=== PATIENT | female | born 1950 | race Asian ===

== ENCOUNTER 2019-12-14 12:18 | Emergency (ER) | payer OTHER, MEDICARE ==
[~2019-12-14] VITALS: Ht 157.5 cm; Wt 72.0 kg
[2019-12-14] MEDS ORDERED: ONDANSETRON HCL 4 MG/2 ML VIAL IVP ONE ×2 (12:45→15:15)
[2019-12-14] MEDS ORDERED: SODIUM CHLORIDE 0.9% 1,000 ML IV ONE ×2 (12:45→13:00)
[2019-12-14] MEDS ORDERED: DEXAMETHASONE SOD PHOS 4 MG/ML 5 ML VIAL IVP ONE (13:00)
[2019-12-14] MEDS ORDERED: METOCLOPRAMIDE HCL 5 MG/ML 2 ML VIAL IVP ONE (13:00)
[2019-12-14] MEDS ORDERED: DiphenhydrAMINE HCL 50 MG/ML VIAL IVP ONE (13:00)
[2019-12-14] MEDS ORDERED: GLIP5 PO (13:11)
[2019-12-14] MEDS ORDERED: ASCO500 PO (13:11)
[2019-12-14 14:12] LABS: BASOPHILS % (AUTO) 0.5 % (0.0-2.0); EOSINOPHILS % (AUTO) 0.5 % (1.0-6.0); HEMATOCRIT 35.5 % (36-46); HEMOGLOBIN 12.1 g/dL (12.0-16.0); LYMPHOCYTES # (AUTO) 1.1 K/uL (1.0-4.8); LYMPHOCYTES % (AUTO) 8.3 % (22.0-44.0); MEAN CORPUSCULAR HEMOGLOBIN 30.3 pg (26.0-34.0); MEAN CORPUSCULAR VOLUME 89 fL (80-100); MONOCYTES # (AUTO) 0.4 K/uL (0.1-1.0); MONOCYTES % (AUTO) 2.8 % (2.0-9.0); NEUTROPHILS # (AUTO) 11.5 K/uL (1.8-7.7); PLATELET COUNT (AUTO) 295 K/uL (150-450); RED BLOOD CELL COUNT(AUTO) 3.98 MIL/uL (4.00-5.20); RED CELL DISTRIBUTION WIDTH 12.6 % (11.5-14.5)
[2019-12-14 14:24] LABS: CALCIUM, TOTAL 8.9 mg/dL (8.8-10.5); CREATININE 1.15 mg/dL (0.60-1.30); POTASSIUM 5.3 mmol/L (3.5-5.1)
[2019-12-14 14:25] LABS: NEUTROPHILS % (AUTO) 87.9 % (40.0-70.0)
[2019-12-14 14:29] LABS: ALBUMIN 4.1 g/dL (3.4-5.0); BILIRUBIN,TOTAL 0.4 mg/dL (0.1-1.0); TOTAL PROTEIN, SERUM 8.5 g/dL (6.4-8.2)
[2019-12-14] MEDS ORDERED: MORPHINE SULFATE 4 MG/ML SYRINGE IVP ONE (15:15)
[2019-12-14] MEDS ORDERED: HydrALAZINE HCL 20 MG/ML VIAL IVP ONE ×2 (15:15→16:15)
[2019-12-14] MEDS ORDERED: SODIUM CHLORIDE 0.9% 100 ML ONE (15:22)
[2019-12-14] MEDS ORDERED: IOVERSOL 350 MG/ML 100 ML VIAL ONE (15:23)
[2019-12-14] MEDS ORDERED: NiCARDipine HCL 25 MG in DEXTROSE 5%-WATER 240 ML IV PRN (16:12)
[2019-12-14 18:33] VITALS: BP 135/73
== END 2019-12-14 17:54 | disposition short-term general hospital (02) ==
LOC: EMS 12:21
DX: I60.9 Nontraumatic subarachnoid hemorrhage, unspecified (principal); I67.1 Cerebral aneurysm, nonruptured; I95.9 Hypotension, unspecified; R11.2 Nausea with vomiting, unspecified; E11.9 Type 2 diabetes mellitus without complications; I10 Essential (primary) hypertension
CPT/HCPCS: 36245; 36415; 36569; 70450; 70496; 76937; 80053; 83690; 84484; 85025; 93005; 96361; 96365; 96375; 96376; 99291; J0360; J1100; J1200; J2270; J2405; J2765; J3490; J7030; J7050; J7060; Q9967; 96366